=== PATIENT | male | born 1995 | race Asian ===

== ENCOUNTER 2021-05-25 15:27 | Emergency (ER) | payer OTHER ==
[2021-05-25 16:31] VITALS: BP 146/96; PULSE 101; TEMP 98.3; BMI 34.4
[2021-05-25] MEDS ORDERED: LIDOCAINE 5% TOPICAL PATCH TP ONE (16:56)
[2021-05-25] MEDS ORDERED: KETOROLAC TROMETHAMINE 30 MG/1 ML VIAL IM ONE (16:56)
[2021-05-25] MEDS ORDERED: METHOCARBAMOL 750 MG TABLET PO ONE (16:58)
[2021-05-25] MEDS ORDERED: METHOCARBAMOL 500 MG TABLET ONE (17:18)
[2021-05-25] MEDS ORDERED: KETOROLAC TROMETHAMINE 30 MG/1 ML VIAL ONE (17:19)
[2021-05-25] MEDS ORDERED: LIDOCAINE 5% TOPICAL PATCH ONE (17:19)
[2021-05-25] MEDS ORDERED: morphine CARPU-JECT 2 MG/1 ML DISP.SYRIN IVPUSH ONE (18:27)
[2021-05-25] MEDS ORDERED: DEXAMETHASONE SOD PHOSPHATE 10 MG/1 ML VIAL IVPUSH ONE (18:27)
[2021-05-25] MEDS ORDERED: diazePAM CARPU-JECT 10 MG/2 ML DISP.SYRIN IVPUSH ONE (19:02)
[2021-05-25 19:27] LABS: EOS % 1.1 % (0-4.5); MCHC 33.5 g/dl (32.0-35.9)
[2021-05-25] MEDS ORDERED: DEXAMETHASONE SOD PHOSPHATE 10 MG/1 ML VIAL ONE (19:29)
[2021-05-25] MEDS ORDERED: diazePAM CARPU-JECT 10 MG/2 ML DISP.SYRIN ONE (19:29)
[2021-05-25 19:35] LABS: BASO % 1.5 % (0-2.0); HEMOGLOBIN 16.8 GM/dl (11.7-16.9); LYMPH % 29.7 % (8-40); MCH 28.5 pg (25.7-33.7); MEAN PLT VOLUME 9.6 fl (7.5-11.1); MONO % 5.7 % (3.8-10.2); PLATELET COUNT 202 10^3/uL (134-434); RBC 5.89 M/mm3 (4.00-5.60); RDW 11.8 % (11.9-15.9); WHITE BLOOD COUNT 7.1 K/mm3 (4.0-10.8)
[2021-05-25 19:48] LABS: ALBUMIN 4.7 g/dl (3.4-5.0); BILIRUBIN,TOTAL 1.1 mg/dl (0.2-1); CALCIUM 9.1 mg/dl (8.5-10); CREATININE 0.9 mg/dl (0.55-1.3); TOT PROT 7.4 g/dl (6.4-8.2)
[2021-05-25] MEDS ORDERED: LIDOCAINE PATCH REMOVAL MC SCH (22:00)
== END 2021-05-25 21:30 | disposition home or self-care (01) ==
LOC: FER 15:27
PROC: 3E023GC Introduction of Other Therapeutic Substance into Muscle, Percutaneous Approach (ICD-10-PCS; principal; 2021-05-25)
PROC: 3E033GC Introduction of Other Therapeutic Substance into Peripheral Vein, Percutaneous Approach (ICD-10-PCS; principal; 2021-05-25)
DX: M54.5 Low back pain (principal)
CPT/HCPCS: 36415; 80053; 85025; 96372; 96374; 96375; 99284-25; C9803; J1100; U0003; U0005